=== PATIENT | female | born 1945 | race Caucasian/White ===

== ENCOUNTER 2021-02-08 16:50 | Inpatient (IN) ==
[2021-02-08] MEDS ORDERED: MAGNESIUM SULF RIDER 2 GM/50 ML PREMIX IV PRN (16:55)
[2021-02-08] MEDS ORDERED: DEXTROSE 50% 25 GM/50 ML VIAL IV PRN (16:55)
[2021-02-08] MEDS ORDERED: MORPHINE 2 MG/1 ML SYRINGE IV PRN (16:55)
[2021-02-08] MEDS ORDERED: ACETAMINOPHEN 325 MG TABLET PO PRN (16:55)
[2021-02-08] MEDS ORDERED: MAGNESIUM SULF RIDER 4 GM/100 ML PREMIX IV PRN (16:55)
[2021-02-08] MEDS ORDERED: GLUCAGON 1 MG VIAL IM PRN (16:55)
[2021-02-08] MEDS ORDERED: ONDANSETRON 4 MG/2 ML VIAL IV PRN (16:55)
[2021-02-08 19:49] LABS: Basophils % 0.3 % (0.0-0.8); Eosinophils % 0.2 % (0.00-10.9); Hematocrit 44.6 VOL% (35.7-47.0); Hemoglobin 13.7 GM/DL (12.0-16.0); Immature Granulocytes % 0.4 %; Immature Granulocytes Absolute 0.05 #; Lymphocytes # 1.8 10*3/uL (1.4-4.0); Lymphocytes % 14.7 % (21.3-54.2); Mean Corpuscular HGB Conc 30.7 GM/DL (32-36); Mean Corpuscular Volume 91.6 FL (87-102); Mean Platelet Volume 10.2 FL (9.6-12.0); Monocytes % 7.2 % (1.7-12.7); Neutrophils % 77.2 % (38.7-73.9); Platelet Count 223 T/CUMM (130-400); Red Blood Count 4.87 MC/CUMM (3.8-5.5); Red Cell Distribution Width 15.5 % (9.3-17.3); White Blood Count 12.3 T/CUMM (4-12)
[2021-02-08] MEDS: INSULIN LISPRO 100 UNIT/ML SUBCUT SCH (21:08)
[2021-02-08 22:11] LABS: Bilirubin,Total 0.4 MG/DL (0.20-1.00); Calcium 9.3 MG/DL (8.5-10.1); Osmolality,Calculated 278.8 MOS/KG (273-304); Potassium 4.3 MMOL/L (3.5-5.1); Total Protein 7.8 G/DL (6.4-8.2)
[2021-02-09 05:43] LABS: Basophils % 0.5 % (0.0-0.8); Eosinophils # 0.1 10*3/uL (0.0-0.87); Hematocrit 41.5 VOL% (35.7-47.0); Hemoglobin 12.5 GM/DL (12.0-16.0); Immature Granulocytes % 0.4 %; Immature Granulocytes Absolute 0.03 #; Lymphocytes # 1.5 10*3/uL (1.4-4.0); Lymphocytes % 18.2 % (21.3-54.2); Mean Corpuscular HGB Conc 30.1 GM/DL (32-36); Mean Corpuscular Volume 93.3 FL (87-102); Neutrophils % 69.9 % (38.7-73.9); Platelet Count 189 T/CUMM (130-400); Red Blood Count 4.45 MC/CUMM (3.8-5.5); Red Cell Distribution Width 15.4 % (9.3-17.3); White Blood Count 8.4 T/CUMM (4-12)
[2021-02-09 06:46] LABS: Calcium 8.8 MG/DL (8.5-10.1); Osmolality,Calculated 283.3 MOS/KG (273-304); Risk Ratio 4.21; Thyroid Stimulating Hormone 1.7 uIU/ml (0.358-3.74); VLDL Cholesterol 35.2 MG/DL
[2021-02-09] MEDS: INSULIN LISPRO 100 UNIT/ML SUBCUT SCH ×4 (07:39→21:45)
[2021-02-09] MEDS ORDERED: FUROSEMIDE 40 MG TABLET PO SCH ×2 (09:16→09:30)
[2021-02-09] MEDS ORDERED: diphenhydrAMINE CAP 50 MG CAPSULE PO ONE (12:22)
[2021-02-09] MEDS ORDERED: DIAZEPAM 5 MG TABLET PO ONE (12:22)
[2021-02-09] MEDS: POTASSIUM CHLORIDE 20 MEQ TABLET PO SCH ×2 (12:28→21:42)
[2021-02-09] MEDS: ASCORBIC ACID 500 MG TABLET PO SCH ×2 (12:28→21:42)
[2021-02-09] MEDS: METOPROLOL SUCCINATE XL 50 MG TABLET PO SCH (12:30)
[2021-02-09] MEDS ORDERED: HEPARIN/NACL 0.9% 2 UNITS/ML 2,000 UNIT/1,000 ML BAG IV ONE (12:41)
[2021-02-09] MEDS ORDERED: LIDOCAINE 1% 20 ML VIAL ONE (12:41)
[2021-02-09] MEDS ORDERED: fentaNYL 100 MCG/2 ML VIAL ONE (12:56)
[2021-02-09] MEDS ORDERED: MIDAZOLAM 2 MG/2 ML VIAL ONE (12:56)
[2021-02-09] MEDS ORDERED: NITROPRUSSIDE 50 MG/2 ML VIAL ONE (13:32)
[2021-02-09] MEDS ORDERED: HEPARIN 5,000 UNIT/1 ML VIAL ONE (13:36)
[2021-02-09] MEDS ORDERED: CLOPIDOGREL 300 MG TABLET ONE (13:58)
[2021-02-09] MEDS ORDERED: ZALEPLON 5 MG CAPSULE PO PRN (14:06)
[2021-02-09] MEDS ORDERED: ASPIRIN CHEW 81 MG TABLET PO ONE (14:08)
[2021-02-09] MEDS: SODIUM CHLORIDE 0.45% 1,000 ML IV SCH (16:53)
[2021-02-09] MEDS: ROSUVASTATIN 20 MG TABLET PO SCH (21:42)
[2021-02-09] MEDS: APIXABAN 2.5 MG TABLET PO SCH (21:42)
[2021-02-10] MEDS: SODIUM CHLORIDE 0.45% 1,000 ML IV SCH ×2 (00:30→07:33)
[2021-02-10 03:55] LABS: Basophils % 0.2 % (0.0-0.8); Eosinophils % 0.1 % (0.00-10.9); Hematocrit 35.6 VOL% (35.7-47.0); Hemoglobin 10.8 GM/DL (12.0-16.0); Immature Granulocytes % 0.6 %; Immature Granulocytes Absolute 0.05 #; Lymphocytes # 1.3 10*3/uL (1.4-4.0); Lymphocytes % 15.4 % (21.3-54.2); Mean Corpuscular HGB Conc 30.3 GM/DL (32-36); Mean Corpuscular Volume 93.2 FL (87-102); Mean Platelet Volume 10.5 FL (9.6-12.0); Monocytes % 6.8 % (1.7-12.7); Neutrophils % 76.9 % (38.7-73.9); Platelet Count 165 T/CUMM (130-400); Red Blood Count 3.82 MC/CUMM (3.8-5.5); Red Cell Distribution Width 15.4 % (9.3-17.3); White Blood Count 8.7 T/CUMM (4-12)
[2021-02-10 04:15] LABS: Calcium 8.3 MG/DL (8.5-10.1); Osmolality,Calculated 285.7 MOS/KG (273-304); Potassium 4.4 MMOL/L (3.5-5.1)
[2021-02-10] MEDS: ASPIRIN EC 81 MG TABLET PO SCH (09:01)
[2021-02-10] MEDS: ASCORBIC ACID 500 MG TABLET PO SCH ×2 (09:01→21:18)
[2021-02-10] MEDS: POTASSIUM CHLORIDE 20 MEQ TABLET PO SCH ×2 (09:01→21:18)
[2021-02-10] MEDS: CALCIUM (CARBONATE)/VITAMIN D 600 MG-400 UNIT TABLET PO SCH (09:01)
[2021-02-10] MEDS: CLOPIDOGREL 75 MG TABLET PO SCH (09:02)
[2021-02-10] MEDS: METOPROLOL SUCCINATE XL 50 MG TABLET PO SCH (09:02)
[2021-02-10] MEDS: INSULIN LISPRO 100 UNIT/ML SUBCUT SCH ×4 (09:03→21:19)
[2021-02-10] MEDS: PANTOPRAZOLE 40 MG TABLET PO SCH (09:11)
[2021-02-10] MEDS ORDERED: POLYETHYLENE GLYCOL POWDER 17 GM PACK PO PRN (16:30)
[2021-02-10] MEDS: ROSUVASTATIN 20 MG TABLET PO SCH (21:18)
[2021-02-10] MEDS: APIXABAN 2.5 MG TABLET PO SCH (21:19)
[2021-02-11 05:03] LABS: Basophils % 0.4 % (0.0-0.8); Eosinophils # 0.1 10*3/uL (0.0-0.87); Eosinophils % 1.8 % (0.00-10.9); Hematocrit 38.4 VOL% (35.7-47.0); Hemoglobin 12.1 GM/DL (12.0-16.0); Immature Granulocytes % 0.6 %; Immature Granulocytes Absolute 0.04 #; Lymphocytes # 2.3 10*3/uL (1.4-4.0); Lymphocytes % 32.5 % (21.3-54.2); Mean Corpuscular HGB Conc 31.5 GM/DL (32-36); Mean Corpuscular Volume 91.9 FL (87-102); Mean Platelet Volume 10.9 FL (9.6-12.0); Monocytes % 9.3 % (1.7-12.7); Neutrophils % 55.4 % (38.7-73.9); Platelet Count 179 T/CUMM (130-400); Red Blood Count 4.18 MC/CUMM (3.8-5.5); Red Cell Distribution Width 15.3 % (9.3-17.3); White Blood Count 7.1 T/CUMM (4-12)
[2021-02-11 06:42] LABS: Calcium 9.3 MG/DL (8.5-10.1); Osmolality,Calculated 285.3 MOS/KG (273-304); Potassium 4.9 MMOL/L (3.5-5.1)
[2021-02-11] MEDS: INSULIN LISPRO 100 UNIT/ML SUBCUT SCH ×2 (07:36→11:34)
[2021-02-11 08:09] VITALS: BP 129/70
[2021-02-11] MEDS: CALCIUM (CARBONATE)/VITAMIN D 600 MG-400 UNIT TABLET PO SCH (08:56)
[2021-02-11] MEDS: CLOPIDOGREL 75 MG TABLET PO SCH (08:56)
[2021-02-11] MEDS: ASPIRIN EC 81 MG TABLET PO SCH (08:56)
[2021-02-11] MEDS: PANTOPRAZOLE 40 MG TABLET PO SCH (08:56)
[2021-02-11] MEDS: ASCORBIC ACID 500 MG TABLET PO SCH (08:56)
[2021-02-11] MEDS: METOPROLOL SUCCINATE XL 50 MG TABLET PO SCH (08:56)
[2021-02-11] MEDS: POTASSIUM CHLORIDE 20 MEQ TABLET PO SCH (08:57)
[2021-02-11] MEDS: APIXABAN 2.5 MG TABLET PO SCH (09:01)
== END 2021-02-11 12:51 | disposition home or self-care (01) | DRG 246 ==
LOC: N.TELEN
PROVIDERS: ADMIT Internal Medicine Cardiovascular Disease; ATTEND Internal Medicine Cardiovascular Disease
PROC: CLDESPG (ICD-10-PCS; 2021-02-09 14:30)